=== PATIENT | female | born 2005 | race African-American/Black ===

== ENCOUNTER 2023-07-08 05:03 | Emergency (ER) | payer OTHER ==
[~2023-07-08] VITALS: Ht 160 cm; Wt 47.0 kg
[2023-07-08 05:24] VITALS: BP 120/74; PULSE 93; RESP 19; TEMP 97.3; O2SAT 100
[2023-07-08] MEDS ORDERED: ONDANSETRON HCL 4MG/2ML INJ IV STA (06:03)
[2023-07-08] MEDS ORDERED: KETOROLAC 30MG/ML VIAL IV STA (06:03)
[2023-07-08 06:04] LABS: BASOPHILS % 0.2 % (0.0-2.0); EOSINOPHILS % 1.4 % (0.0-5.0); HEMATOCRIT. 38.2 % (36.0-48.0); HEMOGLOBIN. 12.6 g/dL (12.0-16.0); LYMPHOCYTES % 16.4 % (20.0-50.0); MEAN CORPUSCULAR HGB CONC 32.9 g/dL (31.0-37.0); MEAN CORPUSCULAR VOLUME 82.2 fL (81.0-99.0); MONOCYTES % 5.9 % (2.0-8.0); NEUTROPHILS % 76.1 % (40.0-76.0); PLATELET 275 x1000/uL (130-400); RED BLOOD CELL COUNT 4.64 mill/uL (4.2-5.4); RED CELL DISTRIBUTION WIDTH 17.9 % (11.6-14.6); WHITE BLOOD COUNT 5.9 x1000/uL (4.5-11.0)
[2023-07-08] MEDS ORDERED: SODIUM CHLORIDE 0.9% 1,000 ML IV ONE ×2 (06:15→08:00)
[2023-07-08 06:19] LABS: ALANINE AMINOTRANSFERASE 13 IU/L (10-49); ALBUMIN 4.9 g/dL (3.2-4.8); ASPARTATE AMINOTRANSFERASE 25 IU/L (<34); BILIRUBIN TOTAL 1.8 mg/dL (0.1-1.0); CALCIUM 10.2 mg/dL (8.7-10.4); CARBON DIOXIDE 18 mEq/L (21-32); CHLORIDE 106 mEq/L (98-107); CREATININE 0.7 mg/dL (0.6-1.0); GLUCOSE 108 mg/dL (70-105); POTASSIUM 2.9 mEq/L (3.5-5.1); PROTEIN TOTAL 7.9 g/dL (6.0-8.3); SODIUM 138 mEq/L (136-145); UREA NITROGEN BLOOD 9 mg/dL (9-23)
[2023-07-08 06:26] LABS: HCG SCREEN NEGATIVE
[2023-07-08 06:35] LABS: INR 1.1; PROTHROMBIN TIME 11.3 sec (9.6-11.0)
[2023-07-08] MEDS ORDERED: POTASSIUM CHLORIDE 20MEQ/PACKET PO ONE (08:00)
[2023-07-08] MEDS ORDERED: POTA-205 PO (09:13)
[2023-07-08] MEDS ORDERED: IBUP-2028 PO (09:13)
[2023-07-08] MEDS ORDERED: ONDA4TAB50 PO (09:13)
[2023-07-08 09:28] LABS: CLARITY URINE HAZY (CLEAR); COLOR URINE YELLOW (YELLOW); PH URINE 8.5 (4.5-8.0); PROTEIN URINE TRACE (NEGATIVE); SPECIFIC GRAVITY URINE 1.015 (1.005-1.030)
[2023-07-08 09:29] LABS: GLUCOSE URINE NEGATIVE (NEGATIVE); KETONES URINE 3+ (NEGATIVE); LEUKOCYTE ESTERASE URINE NEGATIVE (NEGATIVE); NITRITE URINE NEGATIVE (NEGATIVE); OCCULT BLOOD URINE 1+ (NEGATIVE); UROBILINOGEN URINE 0.2 E.U./dL (0.2-1.0)
[2023-07-08 09:59] LABS: BACTERIA URINE TRACE; RBC URINE 0-2 /hpf (0-2); SQUAMOUS EPITHELIAL CELL URINE 1+ /lpf (RARE/1+); YEAST URINE RARE
== END 2023-07-08 10:22 | disposition home or self-care (01) ==
LOC: ER 05:03
DX: R10.9 Unspecified abdominal pain (principal); R11.2 Nausea with vomiting, unspecified
CPT/HCPCS: 80053; 81003; 81025; 84703; 83690; 85025; 85610; 36415; 74176; 96361; 96374; 99285; J1885; J2405; J7030; Z7610 ×3